=== PATIENT | female | born 1940 | race Caucasian/White ===

== ENCOUNTER 2024-10-10 21:02 | Observation (INO) | payer OTHER ==
--- OUTSIDE RECORDS SUMMARY | 2024-10-10 21:06 | XMS REPORT | Continuity of Care Document ---
Author Name Unknown Address [address] [facility] [address] [place] [address] [facility] thconnect Address [address] [facility] [address] [place] [address] Care Team Providers Care Asl Interpreter Name Role Phone SERENE MEDINA Primary Care Physician Unav ailable Sofie Romero Attending Clinician Unavail able GAGE ESPINO Attending Clinician Unavailable Gage Espino MD Attending Clinician [phone] TIM VALENCIA Attending Clinician Unavailable Tim Valencia MD Attending Clinician [phone] Jan KOO Attending Clinician Unavailable Jan Hirsch Attending Clinician [phone] TIM VALENCIA Admitting Clinician Unavailable Payers Payer Name Policy Type Policy Number Effective Date Expirati on Date Source [employer] MA[employer]ED MEDICARE O-CLEOPATRA [id number] 2022 00:00:00 Allergies, Adverse Reactions, Alerts Allergy Name Allergy Type Status Severity Reaction(s) Onset Date Inactive Date Treating Clinician Comments Source HYDROCOD ONE DRUG INGREDI Active High Hallucinates 11-24 00:00: 00 [facility] Hydrocod one Propensi ty to adverse reaction s to drug Active Hallucinatio ns 11-24 00:00: 00 [facility] Social History Social Habit Start Date Stop Date Quantity Comments Source Gender identity [facility] Sexual orientation U [facility] Sex Assigned At 1940 00:00:00 1940 00:00:00 [facility] Smoking Status Start Date Stop Date Source Tobacco smoking consumption unknown [facility] Medications Ordered Medication Name Filled Medication Name Start Date Stop Date Current Medication? Ordering Clinician Indication Dosage Frequency Signature (SIG) Comments Components Source gabapentin (NEURONTIN) 100 mg capsule 2022-10 00:00: 00 Yes [id number] 100mg Take 1 capsule by mouth in the morning and 1 capsule at noon and 1 capsule in the evening. [facility] cephALEXin (KEFLEX) 500 mg capsule 2022-10 00:00: 00 Yes [id number] 500mg Take 1 capsule by mouth 4 (four) times daily. [facility] traMADoL 50 mg tablet 2022-10 00:00: 00 Yes [id number] 50mg Take 1 tablet by mouth every 6 (six) hours as needed for Pain (scale 4-6). Indication s: acute pain [facility] ondansetron 4 mg disintegrat ing tablet 2022-10 00:00: 00 Yes [id number] 4mg Take 1 tablet by mouth every 4 (four) hours as needed for Nausea and Vomiting (N/V). [facility] polycarboph il (FIBER-TABS ) 625 mg tablet 11-24 08:30: 44 Yes 625mg Take 625 mg by mouth daily. [facility] MULTIVIT-MT NERALS/FERR OUS FUM (MULTI VITAMIN ORAL) 11-24 08:30: 44 Yes Take by mouth. [facility] Biotin 2,500 mcg Cap 11-24 08:30: 44 Yes 2{tbl} Take 2 tablets by mouth. [facility] metoprolol tartrate 75 mg Tab 11-24 08:30: 43 Yes Take by mouth. [facility] losartan-hy drochloroth iazide 100-25 mg per tablet 11-24 08:30: 43 Yes 1{tbl} Take 1 tablet by mouth daily. [facility] simvastatin 20 mg tablet 11-24 08:30: 43 Yes 20mg Take 20 mg by mouth at bedtime. [facility] aspirin 81 mg chewable tablet 11-24 08:30: 43 Yes 81mg Take 81 mg by mouth daily. [facility] meclizine 25 mg tablet 11-24 00:00: 00 Yes 25mg Take 1 tablet by mouth every 6 (six) hours. [facility] Immunizations Ordered Immunization Name Filled Immunization Name Date Status Comments Source TD Pres-Free 2023-06-15 00:00:00 Completed [facility] TD Pres-Free Unknown Completed [facility] TD Pres-Free Unknown Completed [facility] Vital Signs Vital Name Observation Time Observation Value Comments S ource Body temperature 2023-09-28 02:46:00 37.22 Kianna [facility] Respiratory rate 2023-09-28 02:46:00 20 /min [facility] Body height 2023-09-28 02:46:00 177.8 cm [facility] Body weight 2023-09-28 02:46:00 87.091 kg [facility] BMI 2023-09-28 02:46:00 27.55 kg/m2 [facility] Oxygen saturation in Arterial blood by Pulse oximetry 2023-09-28 02:46:00 95 /min [facility] Systolic blood pressure 2023-09-28 02:46:00 148 mm[Hg] [facility] Diastolic blood pressure 2023-09-28 02:46:00 98 mm[Hg] [facility] Heart rate 2023-09-28 02:46:00 79 /min [facility] Systolic blood pressure 2023-09-26 17:37:00 142 mm[Hg] [facility] Diastolic blood pressure 2023-09-26 17:37:00 60 mm[Hg] [facility] Heart rate 2023-09-26 17:37:00 71 /min [facility] Body temperature 2023-09-26 17:37:00 37 Kianna [facility] Respiratory rate 2023-09-26 17:37:00 16 /min [facility] Body height 2023-09-26 17:37:00 177.8 cm [facility] Body weight 2023-09-26 17:37:00 87.091 kg [facility] BMI 2023-09-26 17:37:00 27.55 kg/m2 [facility] Oxygen saturation in Arterial blood by Pulse oximetry 2023-09-26 17:37:00 98 /min [facility] Systolic blood pressure 2023-06-15 18:19:19 115 mm[Hg] [facility] Diastolic blood pressure 2023-06-15 18:19:19 88 mm[Hg] [facility] Heart rate 2023-06-15 18:19:19 80 /min [facility] Body temperature 2023-06-15 18:19:19 36.67 Kianna [facility] Respiratory rate 2023-06-15 18:19:19 18 /min [facility] Oxygen saturation in Arterial blood by Pulse oximetry 2023-06-15 18:19:19 99 /min [facility] Body height 2023-06-15 16:11:00 177.8 cm [facility] Body weight 2023-06-15 16:11:00 82.555 kg [facility] BMI 2023-06-15 16:11:00 26.11 kg/m2 [facility] Procedures Procedure Date / Time Performed Performing Clinicia n Source CONSENT/REFUSAL FOR DIAGNOSIS AND TREATMENT 2023-09-28 02:35:45 Doctor Unassigned, [place] [facility] ASSIGNMENT OF BENEFITS 2023-09-26 19:47:34 Docto r Unassigned, [place] [facility] XR ANKLE 3+ VW LEFT 2023-09-26 19:29:54 Theresa Valencia [facility] XR ELBOW >3 VW LEFT 2023-09-26 19:29:54 Theresa Valencia [facility] XR FINGERS 2 VW LEFT 2023-09-26 19:29:54 Ilya Valencia [facility] XR FOREARM 2 VW LEFT 2023-09-26 19:29:54 Ilya Valencia [facility] CONSENT/REFUSAL FOR DIAGNOSIS AND TREATMENT 2023-09-26 17:29:36 Doctor Unassigned, [place] [facility] ED LACERATION REPAIR 2023-06-15 18:03:37 Jan Koo [facility] NOTICE OF PRIVACY PRACTICES 2023-06-15 15:58:32 Doctor Unassigned, [place] [facility] CONSENT/REFUSAL FOR DIAGNOSIS AND TREATMENT 2023-06-15 15:57:30 Doctor Unassigned, [place] [facility] Encounters Start Date/Time End Date/Time Encounter Type Admission Type Attending [facility] Care Facility Care Department Encounter ID Source 2024-09-30 09:27:[address] [facility] [id number] [facility] 2024-07-14 09:45:[address] [facility] [id number] [facility] 2023-09-27 20:47:00 2023-09-27 21:49:00 Emergency X KENZIEGAGE GONZALES [facility] ERT [id number] [facility] 2023-09-27 20:47:00 2023-09-27 21:49:00 Emergency Gage Espino [facility] [id number] [facility] 2023-09-26 11:39:00 2023-09-26 16:10:00 Emergency X TIM VALENCIA [facility] ERT [id number] [facility] 2023-09-26 11:39:00 2023-09-26 16:10:00 Emergency ValenciaTim [facility] [id number] [facility] 2023-06-15 11:13:00 2023-06-15 13:23:00 Emergency X Jan KOO HIFELI ERT [id number] [facility] 2023-06-15 11:13:00 2023-06-15 13:23:00 Emergency Jan Koo [facility] [id number] [facility]
[2024-10-10] MEDS ORDERED: MORPHINE 2 MG/ML SYR ONE (21:27)
[2024-10-10] MEDS ORDERED: ONDANSETRON 4 MG/2 ML VIAL ONE (21:27)
[2024-10-10] MEDS ORDERED: FAMOTIDINE 20 MG/2 ML VIAL IV ONE (21:27)
--- NOTE | 2024-10-10 21:29 | RAD REPORT ---
EXAMINATION: ONE VIEW CHEST XR CLINICAL INDICATION: CHEST PAIN TECHNIQUE: Frontal chest projection is submitted. Examination is limited by patient positioning and t echnique. COMPARISON: 12/24/2018 FINDINGS: The lungs are well inflated and clear. The heart is upper limit of normal in size. No displaced fract ures identified. IMPRESSION: No acute intrathoracic abnormalities.
[2024-10-10 21:31] LABS: Absolute Basophils 0.1 K/uL (0-0.5); Absolute Eosinophils 0.1 K/uL (0-0.5); Absolute Lymphocytes (CBC) 3.1 K/uL (0.7-4.9); Absolute Monocytes 0.4 K/uL (0.1-1.3); Absolute Neutrophil 2.3 K/uL (1.8-8.0); Hematocrit 36.7 % (36.0-45.0); Lymphocytes % 51.2 % (15.3-44.8); MCH 29.9 pg (27.0-35.0); MCHC 32.7 g/dL (32.0-36.0); MCV 91.6 fL (80-100); MPV 9.5 fL (7.6-11.3); Monocytes % 7.3 % (3.3-12.3); Neutrophils % 38.5 % (41.7-73.7); Nucleated Red Blood Cells % 0.1 % (0-0); Platelets 148 thou/uL (152-406); RBC Red Blood Cell Count 4.01 M/uL (3.86-4.86); Red Cell Distribution Width 13.6 % (12.1-15.2)
[2024-10-10 21:35] LABS: Protime INR 1.44
[2024-10-10 21:52] LABS: ALT/SGPT 17 U/L (13-56); AST/SGOT 26 U/L (15-37); Albumin 3.4 g/dL (3.4-5.0); Alkaline Phosphatase 64 U/L (45-117); Anion Gap 8.4 mEq/L (5.0-15.0); BUN Blood Urea Nitrogen 20 mg/dL (7-18); Bicarbonate 32 mEq/L (21-32); Bilirubin Direct < 0.2 mg/dL (0-0.2); Bilirubin Indirect, Calculated 0.3 mg/dL (0.2-0.8); Bilirubin Total 0.5 mg/dL (0.2-1.0); Globulin 3.5 g/dL (2.3-3.5); Glomerular Filtration Rate 47 ml/min (=/>90); Glucose Level 110 mg/dL (74-106); NT PRO-BNP 225 pg/mL (<450); Potassium 3.4 mEq/L (3.5-5.1); Protein, Total 6.9 g/dL (6.4-8.2); Sodium Level 142 mEq/L (136-145); Troponin High Sensitivity 5.5 pg/mL (<58.9)
--- NOTE | 2024-10-10 22:31 | EDPHYS ---
Physician Documentation [facility] Name: Claudette Mc Age: 83 yrs Sex: Female : 1940 Arrival Date: 10/10/2024 Time: 21:02 Bed 3 Private MD: ED Physician Darien Chacon HPI: 10/10 21:15 This 83 yrs old Female presents to ER via Wheelchair with complaints of Chest Pain. cp 21:15 The patient or guardian reports chest pain that is located primarily in the substernal cp area, anterior chest wall, left. 21:15 Onset: just prior to arrival. The pain radiates to Associated signs and symptoms: cp Pertinent negatives: abdominal pain, cough, diaphoresis, dizziness, headache, lower extremity pain, lower extremity swelling, palpitations, shortness of breath, vomiting. 21:15 The chest pain is described as deep. cp 21:15 Duration: The patient or guardian reports a single episode, that is still ongoing, and cp unchanged. Historical: - Allergies: 21:15 Hydrocodone-Acetaminophen; NOT THE ACETAMINOPHIN; vc1 - Immunization history:: Client reports receiving the 2nd dose of the Covid vaccine, Flu vaccine is up to date. - Infectious Disease History:: Denies. - Social history:: Smoking status: Patient denies any tobacco usage or history of. ROS: 21:20 Constitutional: Negative for body aches, chills, fever, poor PO intake, cp 21:20 Eyes: Negative for injury, pain, redness, and discharge, cp 21:20 ENT: Negative for drainage from ear(s), ear pain, sore throat, difficulty swallowing, difficulty handling secretions, 21:20 Cardiovascular: Positive for chest pain, Negative for edema, palpitations, 21:20 Respiratory: Negative for cough, shortness of breath, wheezing, 21:20 Abdomen/GI: Negative for abdominal pain, vomiting, diarrhea, constipation, 21:20 Back: Positive for radiated pain, 21:20 Neuro: Negative for altered mental status, dizziness, headache, numbness, syncope, near syncope, weakness, 21:20 All other systems are negative, Exam: 21:15 ECG was reviewed by the Attending Physician. cp 21:25 Constitutional: The patient appears in no acute distress, alert, awake, cp non-diaphoretic, non-toxic, well developed, well nourished, 21:25 Head/Face: Normocephalic, atraumatic. cp 21:25 Eyes: Periorbital structures: appear normal, Conjunctiva: normal, no exudate, no injection, Sclera: no appreciated abnormality, Lids and lashes: appear normal, bilaterally, 21:25 ENT: External ear(s): are unremarkable, Nose: is normal, Mouth: Lips: moist, Oral mucosa: pink and intact, moist, Posterior pharynx: Airway: no evidence of obstruction, patent, 21:25 Neck: ROM/movement: pain, is not appreciated, limited range of motion, is not appreciated, 21:25 Chest/axilla: Inspection: normal, 21:25 Cardiovascular: Rate: normal, Rhythm: regular, Edema: is not appreciated, JVD: is not appreciated, 21:25 Respiratory: the patient does not display signs of respiratory distress, Respirations: normal, no use of accessory muscles, no retractions, labored breathing, is not present, Breath sounds: are clear throughout, no decreased breath sounds, no stridor, no wheezing, 21:25 Abdomen/GI: Inspection: abdomen appears normal, Palpation: abdomen is soft and non-tender, in all quadrants, 21:25 Back: pain, that is mild, ROM is normal, 21:25 Neuro: Orientation: is normal, Mentation: is normal, Motor: moves all fours, strength is normal, Sensation: is normal, Vital Signs: 21:14 BP 164 / 64; Pulse 70; Resp 20; Temp 97.4; Pulse Ox 100% ; Weight 82.55 kg; Height 5 vc1 ft. 10 in. ; Pain 4/10; 21:24 BP 150 / 67; Pulse 63; Resp 18; Pulse Ox 99% ; kmf 21:45 BP 132 / 58; Pulse 59; Resp 16; Pulse Ox 100% on R/A; kmf 23:05 BP 136 / 58; Pulse 57; Resp 16; Pulse Ox 100% on R/A; kmf 10/11 00:20 BP 126 / 51; Pulse 65; Resp 17; Pulse Ox 98% ; cp4 10/10 21:14 Body Mass Index 26.11 (82.55 kg, 177.8 cm) vc1 10/10 21:14 Pain Scale: Adult vc1 MDM: 10/10 21:09 Medical Screening Exam initiated cp 22:30 Data reviewed: vital signs, nurses notes, lab test result(s), EKG, radiologic studies, cp plain films, and as a result, I will admit patient. 22:30 Differential diagnosis: abnormal EKG, acute myocardial infarction, pericarditis, cp pleurisy, pneumonia, pneumothorax, stable angina, thoracic aortic disection, unstable angina. I considered the following discharge prescriptions or medication management in the emergency department Medications were administered in the Emergency Department. See MAR. Independent interpretation of the following test(s) in the Emergency Department EKG: See my EKG interpretation above. Counseling: I had a detailed discussion with the patient and/or guardian regarding the historical points, exam findings, and any diagnostic results supporting the discharge/admit diagnosis, lab results, radiology results. Response to treatment: the patient's symptoms have markedly improved after treatment. 10/10 21:09 Order name: Basic Metabolic Panel; Complete Time: 21:57 cp 10/10 21:58 Interpretation: Normal except: K 3.4; GLUC 110; BUN 20; CRE 1.16; GFR 47. cp 10/10 21:09 Order name: CBC with Diff; Complete Time: 21:57 cp 10/10 21:09 Order name: LFT's; Complete Time: 21:57 cp 10/10 21:09 Order name: Magnesium; Complete Time: 21:57 cp 10/10 21:09 Order name: NT PRO-BNP; Complete Time: 21:57 cp 10/10 21:09 Order name: PT-INR; Complete Time: 21:57 cp 10/10 21:09 Order name: Troponin HS; Complete Time: 21:57 cp 10/10 22:51 Order name: Basic Metabolic Panel EDMS 10/10 22:51 Order name: Basic Metabolic Panel EDMS 10/10 22:51 Order name: CBC with Automated Diff EDMS 10/10 22:51 Order name: CBC with Automated Diff EDMS 10/10 22:51 Order name: Lipid Profile EDMS 10/10 22:51 Order name: Lipid Profile EDMS 10/10 22:51 Order name: Troponin High Sensitivity EDMS 10/10 22:51 Order name: Troponin High Sensitivity EDMS 10/10 22:51 Order name: Troponin High Sensitivity EDMS 10/10 22:51 Order name: Troponin High Sensitivity EDMS 10/10 22:51 Order name: Troponin High Sensitivity EDOR 10/10 21:09 Order name: XRAY Chest (1 view); Complete Time: 21:32 10/10 21:32 Interpretation: Report review. 10/10 22:51 Order name: Echo with Doppler EDOR 10/10 21:09 Order name: EKG; Complete Time: 21:10 10/10 21:09 Order name: Cardiac monitoring; Complete Time: 21:15 10/10 21:09 Order name: EKG - Nurse/Tech; Complete Time: 21:14 10/10 21:09 Order name: IV Saline Lock; Complete Time: 21:25 10/10 21:09 Order name: Labs collected and sent; Complete Time: 21:25 10/10 21:09 Order name: O2 Per Protocol; Complete Time: 21:15 10/10 21:09 Order name: O2 Sat Monitoring; Complete Time: 21:15 cp EC:15 Rate is 69 beats/min. Rhythm is regular. MT interval is normal. QRS interval is cp prolonged at 152 msec. QT interval is normal. T waves are Inverted in leads I, aVL. Interpreted by me. Reviewed by me. Administered Medications: 21:33 Drug: morphine IVP or IV 2 mg IVP once over 4 mins Route: IVP; Infused Over: 4 mins; cp4 Site: left forearm; 10/11 00:22 Follow up: Response: No adverse reaction cp4 10/10 21:33 Drug: Ondansetron IVP 4 mg IVP once; over 2 minutes Route: IVP; Site: left forearm; cp4 10/11 00:22 Follow up: Response: No adverse reaction 4 10/10 21:33 Drug: Famotidine IVP 20 mg IVP once; dilute with 10 mL 0.9% NaCl; give over 2 minutes cp4 Route: IVP; Site: left forearm; 10/11 00:22 Follow up: Response: No adverse reaction cp4 Disposition: 05:39 Co-signature as Attending Physician, Darien Chacon MD I reviewed the patient's care rn provided by the Advanced Practice Provider and agree with the diagnosis and treatment plan. Disposition Summary: 10/10/24 22:30 Hospitalization Ordered Notes: Hospitalization Status: Observation Provider: Prince kaley Hartman Location: Telemetry/MedSurg (observation) cp Condition: Stable cp Problem: new cp Symptoms: have improved cp Bed/Room Type: Standard cp Room Assignment: 208(10/10/24 22:59) rv1 Diagnosis - Chest pain, unspecified cp Forms: - Medication Reconciliation Form cp - SBAR form cp - Leadership Thank You Letter cp Signatures: Dispatcher [employer] EDMS Darien Chacon MD MD rn Clint Tompkins PA PA cp Calcote, Vanessa, RN RN vc1 Anila Sanchez rv1 Dena Gastelum cp4 Corrections: (The following items were deleted from the chart) 10/10 21:10 21:10 BASIC METABOLIC PANEL+C.LAB.BRZ ordered. EDMS EDMS 21:10 21:10 CBC+H.LAB.BRZ ordered. EDMS EDMS 21:10 21:10 HEPATIC FUNCTION+C.LAB.BRZ ordered. EDMS EDMS 21:10 21:10 MAGNESIUM+C.LAB.BRZ ordered. EDMS EDMS 21:10 21:10 PROBNP+C.LAB.BRZ ordered. EDMS EDMS 21:10 21:10 PROTIME (+INR)+COAG.LAB.BRZ ordered. EDMS EDMS 21:10 21:10 Troponin High Sensitivity+C.LAB.BRZ ordered. EDMS EDMS 22:32 21:58 Recheck B/P ordered. cp cp4 22:59 22:30 cp rv1
--- NOTE | 2024-10-10 22:31 | ER ---
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 vc1 Coronavirus screen: Client denies travel out of the [place] in the last 14 days. At this time, the client does not indicate any symptoms associated with coronavirus-19. Ebola Screen: Patient negative for fever greater than or equal to 101.5 degrees Fahrenheit, and additional compatible Ebola Virus Disease symptoms Patient denies exposure to infectious person. Patient denies travel to an Ebola-affected area in the 21 days before illness onset. No symptoms or risks identified at this time. Initial Sepsis Screen: Does the patient meet any 2 criteria? No. Patient's initial sepsis screen is negative. Does the patient have a suspected source of infection? No. Patient's initial sepsis screen is negative. Risk Assessment: Do you want to hurt yourself or someone else? Patient reports no desire to harm self or others. Onset of symptoms was October 10, 2024. 21:14 Method Of Arrival: Wheelchair vc1 21:14 Acuity: LESLIE 3 vc1 Triage Assessment: 21:17 General: Appears in no apparent distress. comfortable, well groomed, well developed, vc1 Behavior is calm, cooperative, appropriate for age. Pain: Complains of pain in anterior aspect of left upper chest and mid-sternal area Pain radiates to back Pain currently is 4 out of 10 on a pain scale. Quality of pain is described as DEEP Pain began suddenly, 30 min ago. Is continuous. EENT: No deficits noted. No signs and/or symptoms were reported regarding the EENT system. Neuro: Level of Consciousness is awake, alert, obeys commands, Oriented to person, place, time, situation, Appropriate for age. Cardiovascular: Reports chest pain, Capillary refill < 3 seconds Patient's skin is warm and dry. Chest pain is described as mild, Pain is 4 out of 10 on a pain scale. quality is DEEP began 30 minutes prior to arrival episodes are continuous. Respiratory: Airway is patent Respiratory effort is even, unlabored, Respiratory pattern is regular, symmetrical. GI: No deficits noted. No signs and/or symptoms were reported involving the gastrointestinal system. : No deficits noted. No signs and/or symptoms were reported regarding the genitourinary system. Derm: Skin is intact, is healthy with good turgor, Skin is dry, Skin is normal, Skin temperature is warm. Musculoskeletal: Circulation, motion, and sensation intact. Range of motion: intact in all extremities. Historical: - Allergies: 21:15 Hydrocodone-Acetaminophen; NOT THE ACETAMINOPHIN; vc1 - Immunization history:: Client reports receiving the 2nd dose of the Covid vaccine, Flu vaccine is up to date. - Infectious Disease History:: Denies. - Social history:: Smoking status: Patient denies any tobacco usage or history of. Screenin:17 Abuse screen: Denies threats or abuse. Nutritional screening: No deficits noted. vc1 Tuberculosis screening: No symptoms or risk factors identified. 21:20 [facility] ED Fall Risk Assessment (Adult) History of falling in the last 3 months, cp4 including since admission No falls in past 3 months (0 pts) Confusion or Disorientation No (0 pts) Intoxicated or Sedated No (0 pts) Impaired Gait No (0 pts) Mobility Assist Device Used No (0 pt) Altered Elimination No (0 pt) Score/Fall Risk Level 0 - 2 = Low Risk Oriented to surroundings, Maintained a safe environment, Assessed \T\ reinforced patient's understanding of fall precautions, Hourly rounding (assess needs \T\ fall precautionary measures) done. Assessment: 21:20 General: Appears in no apparent distress. comfortable, Behavior is calm, cooperative, cp4 appropriate for age. 21:20 Pain: Complains of pain in chest and mid-sternal area and anterior aspect of left upper cp4 chest Pain does not radiate. Pain: Pain currently is 8 out of 10 on a pain scale. Neuro: Level of Consciousness is awake, alert, obeys commands, Oriented to person, place, time, situation. Cardiovascular: Patient's skin is warm and dry. Respiratory: Airway is patent Respiratory effort is even, unlabored. GI: No signs and/or symptoms were reported involving the gastrointestinal system. : No signs and/or symptoms were reported regarding the genitourinary system. EENT: No signs and/or symptoms were reported regarding the EENT system. Derm: No signs and/or symptoms reported regarding the dermatologic system. Musculoskeletal: No signs and/or symptoms reported regarding the musculoskeletal system. 22:30 Reassessment: Patient appears in no apparent distress at this time. Patient and/or cp4 family updated on plan of care and expected duration. Pain level reassessed. Patient is alert, oriented x 3, equal unlabored respirations, skin warm/dry/pink. 23:31 Reassessment: Patient appears in no apparent distress at this time. Patient and/or cp4 family updated on plan of care and expected duration. Pain level reassessed. Patient is alert, oriented x 3, equal unlabored respirations, skin warm/dry/pink. Vital Signs: 21:14 BP 164 / 64; Pulse 70; Resp 20; Temp 97.4; Pulse Ox 100% ; Weight 82.55 kg; Height 5 vc1 ft. 10 in. ; Pain 4/10; 21:24 BP 150 / 67; Pulse 63; Resp 18; Pulse Ox 99% ; kmf 21:45 BP 132 / 58; Pulse 59; Resp 16; Pulse Ox 100% on R/A; kmf 23:05 BP 136 / 58; Pulse 57; Resp 16; Pulse Ox 100% on R/A; kmf 10/11 00:20 BP 126 / 51; Pulse 65; Resp 17; Pulse Ox 98% ; cp4 10/10 21:14 Body Mass Index 26.11 (82.55 kg, 177.8 cm) vc1 10/10 21:14 Pain Scale: Adult vc1 ED Course: 10/10 21:04 Patient arrived in ED. im 21:06 Clint Tompkins PA is PHCP. cp 21:06 Darien Chacon MD is Attending Physician. cp 21:14 Dena Gastelum is Primary Nurse. cp4 21:15 Triage completed. vc1 21:16 Arm band placed on left wrist. vc1 21:18 XRAY Chest (1 view) In Process Unspecified. EDMS 21:19 Patient has correct armband on for positive identification. Bed in low position. Call vc1 light in reach. manufacturing quality manager on. Pulse ox on. NIBP on. 21:20 Provided Education on: chest pain. cp4 21:20 No provider procedures requiring assistance completed. Patient maintains SpO2 cp4 saturation greater than 95% on room air. 21:25 Inserted saline lock: 22 gauge in left forearm, using aseptic technique. Blood kmf collected. Flushed with 10 mL NS. 22:30 Prince Hartman MD is Hospitalizing Provider. cp 10/11 00:27 Patient admitted, IV remains in place. cp4 Administered Medications: 10/10 21:33 Drug: morphine IVP or IV 2 mg IVP once over 4 mins Route: IVP; Infused Over: 4 mins; cp4 Site: left forearm; 10/11 00: Follow up: Response: No adverse reaction cp4 10/10 21:33 Drug: Ondansetron IVP 4 mg IVP once; over 2 minutes Route: IVP; Site: left forearm; cp4 10/11 00: Follow up: Response: No adverse reaction cp4 10/10 21: Drug: Famotidine IVP 20 mg IVP once; dilute with 10 mL 0.9% NaCl; give over 2 minutes cp4 Route: IVP; Site: left forearm; 10/11 00: Follow up: Response: No adverse reaction cp4 Medication: 10/10 21:20 VIS not applicable for this client. cp4 Outcome: 22:30 Decision to Hospitalize by Provider. cp 10/11 00:27 Admitted to Med/surg accompanied by nurse, via wheelchair, with chart, cp4 Condition: stable Instructed on the need for admit, 00:27 Patient left the ED. cp4 Signatures: Dispatcher [employer] EDMS Clint Tompkins PA PA cp Andreina Varela RN RN Cherry Miller Christina cp4 [place] kmf
[2024-10-10] MEDS: ATORVASTATIN 80 MG TAB PO SCH (22:54)
--- NOTE | 2024-10-10 22:54 | P.HP ---
Certification for Inpatient Patient admitted to: Observation With expected LOS: <2 Midnights Practitioner: I am a practitioner with admitting privileges, knowledge of patient current condition, hospital course, and medical plan of care. Services: Services provided to patient in accordance with Admission requirements found in Title 42 Section 412.3 of the Code of Federal Regulations Patient History Date of Service: 10/10/24 Reason for admission: Chest pain History of Present Illness: Patient is a 83-year-old female with a known past medical history of hypertension, hyperlipidemia, atrial fibrillation on Eliquis and left bundle branch block. She presented to the ER accompanied by with chief complaint of chest pain. Patient is describing an acute onset of substernal chest pain that started while she was reading emails from her computer. Prior to this, she has been relatively asymptomatic. She denies shortness of breath, lower extremity edema, orthopnea or PND. Patient states that she follows up with Dr. Chatterjee and has been told recently that she has a leaky mitral valve. She is scheduled to have a stress test in February 2025. Patient denies history of diabetes or coronary artery disease. She is in the ER slightly hypertensive with SBP of 147 mmHg. Otherwise, she did not appear in acute distress. Her EKG shows normal sinus rhythm with left bundle branch block. Her first troponin is negative Physical Examination - Physical Exam General: In no apparent distress HEENT: Atraumatic, Normocephalic Cardiovascular: No edema, Normal pulses, Regular rate/rhythm, Normal S1 S2 Neurological: Normal speech - Studies Laboratory Data (last 24 hrs) 10/10/24 10/10/24 10/10/24 21:16 21:16 21:16 WBC 6.00 Hgb 12.0 Hct 36.7 Plt Count 148 L PT 16.0 H INR 1.44 Sodium 142 Potassium 3.4 L BUN 20 H Creatinine 1.16 H Glucose 110 H Magnesium 2.0 Total Bilirubin 0.5 AST 26 ALT 17 Alkaline Phosphatase 64 Assessment and Plan - Problems (Diagnosis) (1) Chest pain Current Visit: Yes Status: Acute (2) Hypertension Current Visit: Yes Status: Acute (3) Hyperlipidemia Current Visit: Yes Status: Acute (4) Atrial fibrillation Current Visit: Yes Status: Acute - Plan Assessment Patient is a 83-year-old female with a past medical history of hypertension, hyperlipidemia, atrial fibrillation on Eliquis and possibly mitral valve disease. She is being admitted after she presented with a nonexertional substernal chest pain. Patient has never had a stress test or ischemic workup in the past. She has been told that she has a leaky mitral valve. Her EKG shows normal sinus rhythm and left bundle branch block. Her first troponin is negative. Chest pain Atrial fibrillation on Eliquis Hypertension Hyperlipidemia Left bundle branch block Mitral valve disease Thrombocytopenia Plan: Admit under observation with telemetry Trend troponins Will obtain a 2D echo Aspirin and atorvastatin ordered Check lipid panel Cardiology consulted SCD for DVT prophylaxis Resume rest of home medications upon reconciliation Patient is full code - Advance Directives Does patient have a Living Will: No Does patient have a Durable POA for Healthcare: No
[2024-10-11 00:22] VITALS: BMI 26.1
[2024-10-11] MEDS: NITROGLYCERIN 0.4 MG/TAB SL PRN (02:48)
[2024-10-11 04:51] LABS: Absolute Eosinophils 0.1 K/uL (0-0.5); Absolute Lymphocytes (CBC) 2.4 K/uL (0.7-4.9); Absolute Monocytes 0.4 K/uL (0.1-1.3); Absolute Neutrophil 2.1 K/uL (1.8-8.0); Basophils % 0.6 % (0-1.3); Eosinophils % 2.2 % (0-4.4); Hematocrit 33.2 % (36.0-45.0); Hemoglobin 10.9 g/dL (12.0-15.0); Lymphocytes % 47.4 % (15.3-44.8); MCH 30.2 pg (27.0-35.0); MCHC 32.9 g/dL (32.0-36.0); MCV 91.9 fL (80-100); MPV 10.3 fL (7.6-11.3); Neutrophils % 41.8 % (41.7-73.7); Platelets 123 thou/uL (152-406); RBC Red Blood Cell Count 3.61 M/uL (3.86-4.86); Red Cell Distribution Width 13.3 % (12.1-15.2)
[2024-10-11 05:02] LABS: Anion Gap 7.4 mEq/L (5.0-15.0); Potassium 3.4 mEq/L (3.5-5.1)
[2024-10-11 05:12] LABS: Troponin High Sensitivity 5.3 pg/mL (<58.9)
[2024-10-11] MEDS: ASPIRIN EC 81 MG TAB PO SCH (08:03)
--- NOTE | 2024-10-11 09:14 | P.CNS ---
Date of Consult: 10/11/24 Chief Complaint: Chest pain History of Present Illness: Patient with PMH of HTN, HLD, AF, LBBB presented with chest pain, pressure in nature, mid chest happened twice over the last 24 hours, get relieved by NTG, denies any other cardiac symptoms. Allergies hydrocodone Allergy (Verified 10/11/24 00:21) Hives/Rash Home medications list reviewed: Yes Home Medications: Amlodipine [Norvasc*] 2.5 mg PO DAILY 10/11/24 Apixaban [Eliquis] 5 mg PO DAILY 10/11/24 Calcium Carbonate [Calcium] 600 mg PO DAILY 10/11/24 Fiber [Fiber Diet] 625 mg PO BID 10/11/24 Losartan/Hydrochlorothiazide [Losartan-Hctz 100-25 mg Tab] 100 mg PO DAILY 10/11/24 Metoprolol Tartrate 75 mg PO DAILY 10/11/24 Simvastatin 100 mg PO DAILY 10/11/24 - Past Medical/Surgical History Diabetic: No - Social History Alcohol use: No CD- Drugs: No Caffeine use: Yes Place of Residence: Home Review of Systems 10-point ROS is otherwise unremarkable Physical Examination Temp Pulse Resp BP Pulse Ox 97.9 F 61 16 121/57 L 96 10/11/24 04:00 10/11/24 04:00 10/11/24 04:00 10/11/24 04:00 10/11/24 04:00 General: Alert, In no apparent distress HEENT: Atraumatic, PERRLA, Mucous membr. moist/pink, EOMI, Sclerae nonicteric Neck: Supple, 2+ carotid pulse no bruit, No LAD, Without JVD or thyroid abnormality Respiratory: Clear to auscultation bilaterally, Normal air movement Cardiovascular: Regular rate/rhythm, Normal S1 S2 Gastrointestinal: Normal bowel sounds, No tenderness Musculoskeletal: No tenderness Integumentary: No rashes Neurological: Normal gait, Normal speech, Normal tone, Normal affect Lymphatics: No axilla or inguinal lymphadenopathy Laboratory Data (last 24 hrs) 10/10/24 10/10/24 10/10/24 21:16 21:16 21:16 WBC 6.00 Hgb 12.0 Hct 36.7 Plt Count 148 L PT 16.0 H INR 1.44 Sodium 142 Potassium 3.4 L BUN 20 H Creatinine 1.16 H Glucose 110 H Magnesium 2.0 Total Bilirubin 0.5 AST 26 ALT 17 Alkaline Phosphatase 64 - Problems (1) Atrial fibrillation Current Visit: Yes Status: Acute Plan: Patient currently in sinus rhythm continue toprol hold eleiquis until coronary angiogram is done (2) Chest pain Current Visit: Yes Status: Acute Plan: concern for unstable angina. NPO for coronary angiogram (3) Hyperlipidemia Current Visit: Yes Status: Acute Plan: continue statins. (4) Hypertension Current Visit: Yes Status: Acute Plan: continue toprol
[2024-10-11] MEDS ORDERED: NITROGLYCERIN/D5W 50 MG/250 ML BTL IV ONE (09:25)
[2024-10-11] MEDS ORDERED: HEPA 1000U/500MLS 2,000 UNIT/1,000 ML BAG IV ONE (09:25)
[2024-10-11] MEDS ORDERED: LIDOCAINE 1% 20 ML MDV ONE (09:25)
[2024-10-11] MEDS ORDERED: HEPARIN 10,000 UNIT/10 ML VIAL IV ONE (09:25)
[2024-10-11] MEDS ORDERED: ATROPINE SULF 1 MG/10 ML SYR IV ONE (09:26)
[2024-10-11] MEDS ORDERED: MIDAZOLAM HCL 2 MG/2 ML INJ ONE (09:26)
[2024-10-11] MEDS ORDERED: CLOPIDOGREL 75 MG TABLET ONE (09:26)
[2024-10-11] MEDS ORDERED: HEPARIN 5000 UNIT/ML 1 ML VIAL ONE (09:26)
[2024-10-11] MEDS ORDERED: TICAGRELOR 90 MG TABLET PO ONE (09:26)
[2024-10-11] MEDS ORDERED: FENTANYL CITR 100 MCG/2 ML ONE (09:27)
[2024-10-11] MEDS ORDERED: ASPIRIN 325 MG TAB ONE (09:27)
[2024-10-11] MEDS ORDERED: NA CHLORIDE 0.9% 500 ML ONE (09:43)
--- NOTE | 2024-10-11 10:13 | P.PN ---
Date of Service: 10/11/24 Subjective: feels chest pain/pressure is relieved with nitro denies any new / worsening problems plan for LHC today ROS: 10 point ROS as noted above, otherwise negative Physical Exam: GEN: Alert, oriented, NAD CV: Regular rate and rhythm, no edema Pulm: Nonlabored respirations on room air, clear bilaterally ABD: soft, nontender, nondistended Neuro: Normal speech, normal affect Problem List: Chest pain A-fib on chronic anticoagulation Hypertension Hyperlipidemia Hx Left bundle branch block Hx Mitral valve disease Chest pain on admission, presents with sudden onset substernal chest pain. Denies SOB/edema Denies prior history of CAD. Follows Dr. Chatterjee as outpatient. Has upcoming Stress test planned in February 2025. Reportedly told she has a "leaky mitral valve" Trend troponins, monitor on telemetry continue asa, statin Echo ordered to eval EF / stenosis Cardiology consulted NPO for LHC per cardio hold eliquis given tentative cath resume metoprolol chest pain relieved with Nitro A-fib on chronic anticoagulation Hypertension Hyperlipidemia Hx Left bundle branch block Hx Mitral valve disease confirm home meds, restart as appropriate hold eliquis for LHC continue home asa, statin resume home metoprolol VTE: hold eliquis Code: Full Dispo: Home later today vs tomorrow Pending LHC, cardio recs Time Spent Managing Pts Care (In Minutes): 55
--- NOTE | 2024-10-11 11:07 | EKG ---
Test Date: 2024-10-10 Test Time: 21:09:19 Resin Coater: CECILIO MEASUREMENT RESULTS: Intervals: Rate: 69 MD: 126 QRSD: 152 QT: 440 QTc: 471 [place]: P: 50 MD: 126 QRS: 19 T: 148 INTERPRETIVE STATEMENTS: Normal sinus rhythm Left bundle branch block Abnormal ECG Compared to ECG 12/24/1996 09:06:00 Left bundle-branch block now present Electronically Signed On 10-11-24 11:06:25 LIDAR ANALYST by Sekou Holloway
[2024-10-11 11:44] VITALS: O2SAT 94
--- NOTE | 2024-10-11 12:29 | OP ---
Date of Procedure: 10/11/2024 Surgeon: Sekou Holloway Procedures Performed: 1.Left heart catheterization. 2.Selective coronary angiogram. Indication For Procedure: Unstable angina. Access: Right radial, closed by TR band. Sedation Time: 20 minutes with 1 of Versed and 50 of fentanyl. Complications: None. Estimated Blood Loss: Less than 50 cc. Description Of Procedure: After risks, and benefits, and alternatives were explained to the patient, patient agreed to proceed with procedure and signed informed consent. The patient was brought back to the laboratory administrative director, prepped and draped in the usual sterile fashion. Time-out was performed. Sedation was administered. Next, ultrasound-guided right radial access was obtained. Shirley 4.0 catheter was advanced over a J-wire to the LV cavity. LVEDP was obtained. Pullback did not show any gradient. S adriana catheter was used for selective angiogram of the left and right coronary systems. At the end of procedure, catheter was removed over a J-wire. Sheath was removed. TR band was applied and hemostas is was achieved. The patient was moved back to Recovery in stable condition. Findings: 1.Left main normal. 2.LAD; mild calcifications with mid 10% to 20% disease and mild luminal irregularities. Gives 1 linda gonal that is medium-sized with mild luminal irregularities. 3.Left circ; mild luminal irregularities. OM1/OM2, mild luminal irregularities. 4.RCA; dominant, proximal 30% disease, then mid 10% to 20% disease, then mild luminal irregularities . 5.LVEDP 9 mmHg. Assessment And Plan: 1.Mild nonobstructive coronary artery disease. 2.Normal filling pressure. Plan will be to continue medical management. JOSE MIGUEL/TIM Voice ID: [id number] Report ID: [id number]
[2024-10-11 12:36] VITALS: BP 141/80; TEMP 98
--- NOTE | 2024-10-18 14:37 | P.DS ---
Admission Date: 10/11/24 Discharge Date: 10/11/24 Disposition: ROUTINE DISCHARGE Discharge Condition: GOOD Reason for Admission: Chest pain Vital Signs/Physical Exam: Temp Pulse Resp BP Pulse Ox 98 F 62 16 141/80 H 97 10/11/24 12:35 10/11/24 12:35 10/11/24 12:35 10/11/24 12:35 10/11/24 12:35 Laboratory Data at Discharge: WBC 5.10 thou/uL (4.3-10.9) 10/11/24 04:26 Hgb 10.9 g/dL (12.0-15.0) L D 10/11/24 04:26 Hct 33.2 % (36.0-45.0) L 10/11/24 04:26 Plt Count 123 thou/uL (152-406) L 10/11/24 04:26 PT 16.0 SECONDS (9.4-12.5) H 10/10/24 21:16 INR 1.44 10/10/24 21:16 Sodium 144 mEq/L (136-145) 10/11/24 04:26 Potassium 3.4 mEq/L (3.5-5.1) L 10/11/24 04:26 BUN 17 mg/dL (7-18) 10/11/24 04:26 Creatinine 0.92 mg/dL (0.55-1.02) 10/11/24 04:26 Glucose 105 mg/dL (74-106) 10/11/24 04:26 Magnesium 2.0 mg/dL (1.6-2.4) 10/10/24 21:16 Total Bilirubin 0.5 mg/dL (0.2-1.0) 10/10/24 21:16 AST 26 U/L (15-37) 10/10/24 21:16 ALT 17 U/L (13-56) 10/10/24 21:16 Alkaline Phosphatase 64 U/L (45-117) 10/10/24 21:16 Triglycerides 73 mg/dL (<150) 10/11/24 04:26 Cholesterol 120 mg/dL (<200) 10/11/24 04:26 HDL Cholesterol 57 mg/dL (40-60) 10/11/24 04:26 Cholesterol/HDL Ratio 2.11 10/11/24 04:26 Home Medications: Amlodipine [Norvasc*] 2.5 mg PO DAILY 10/11/24 Apixaban [Eliquis] 5 mg PO DAILY 10/11/24 Calcium Carbonate [Calcium] 600 mg PO DAILY 10/11/24 Fiber [Fiber Diet] 625 mg PO BID 10/11/24 Losartan/Hydrochlorothiazide [Losartan-Hctz 100-25 mg Tab] 100 mg PO DAILY 10/11/24 Metoprolol Tartrate 75 mg PO DAILY 10/11/24 Simvastatin 100 mg PO DAILY 10/11/24 Physician Discharge Instructions: Physician discharge instructions: Patient presented with sudden onset substernal chest pain concerning for unstable angina. Initial EKG noted left bundle branch block, sinus rhythm. Chest xray negative for any acute findings. Troponins negative. The rest of her labwork was unremarkable on admission. She reports history of leaky mitral valve and left bundle branch block, and state she was previously scheduled for an upcoming stress test with Dr. Chatterjee (February 2025). Patient was evaluated by Dr. Holloway, cardiology who recommended left heart catheter to further evaluate. Left heart cath: mild coronary artery disease, no intervention needed/warranted. acute coronary syndrome was ruled out. Patient was feeling better, chest pain improved, and was deemed stable for discharge. Advised to follow up with cardiology in next 2-4 weeks for follow up. Medications: continue home meds as previously prescribed Follow up: PCP 3-5 days Cardiology 2-4 weeks Please call to schedule / confirm appointments Left heart catheterization / coronary angiogram Findings: 1. Left main normal. 2. LAD; mild calcifications with mid 10% to 20% disease and mild luminal irregularities. Gives 1 diagonal that is medium-sized with mild luminal irregularities. 3. Left circ; mild luminal irregularities. OM1/OM2, mild luminal irregularities. 4. RCA; dominant, proximal 30% disease, then mid 10% to 20% disease, then mild luminal irregularities. 5. LVEDP 9 mmHg. Assessment And Plan: 1. Mild nonobstructive coronary artery disease. Followup: Sofie Romero MD [Primary Care Provider] -
== END 2024-10-11 13:40 | disposition home or self-care (01) ==
LOC: ER 21:02 → ERHOLD 22:47 → 2ND 23:19
PROVIDERS: ADMIT Internal Medicine; ATTEND Hospitalist
PROC: 4A023N7 Measurement of Cardiac Sampling and Pressure, Left Heart, Percutaneous Approach (ICD-10-PCS; principal; 2024-10-11)
PROC: B2111ZZ Fluoroscopy of Multiple Coronary Arteries using Low Osmolar Contrast (ICD-10-PCS; 2024-10-11)
DX: I25.110 Atherosclerotic heart disease of native coronary artery with unstable angina pectoris (principal); I44.7 Left bundle-branch block, unspecified; I05.8 Other rheumatic mitral valve diseases; I48.91 Unspecified atrial fibrillation; I10 Essential (primary) hypertension; D69.6 Thrombocytopenia, unspecified; E78.5 Hyperlipidemia, unspecified; Z79.01 Long term (current) use of anticoagulants; Z79.899 Other long term (current) drug therapy; Z88.5 Allergy status to narcotic agent
CPT/HCPCS: 93005; 85025 ×2; 80048 ×2; 36415; 83735; 85610; 80061; 80076; 84484 ×2; 83880; 71045; 93458; 76937; 96375; 96374; 99285; C1893; Q9966; J1644; J2003; J2250; J3010; J2270; J2405; G0378 ×3; J7040; 99152; 99153; J0461